=== PATIENT | female | born 1975 | race African-American/Black ===

== ENCOUNTER 2016-11-11 17:06 | Inpatient (IN) | payer MEDICAID ==
[~2016-11-11] VITALS: Ht 152.4 cm; Wt 46.7 kg
[2016-11-11 17:11] VITALS: BP_SYST 103
--- NOTE | 2016-11-11 17:15 | NUR ---
Pt placed to ER bed 05, to larrywjulia, report given to BABS Melo.
--- NOTE | 2016-11-11 17:33 | NUR ---
Note undone in EDM - 11/11/16 at 1814 by [email or web address] Patient is ALOC x 4, no distress noted. Vitals signs are stable. Patient reports that she has been having chest pain today non radiating with difficulty breathing and generalized abdominal pain. Lungs are clear in all wooten. Patient reports also having vomiting, diarrhea, and constipation for 4 days. Pain of 7/8 . eyelet maker applied. No other complaints/injuries per patient or as noted. Will continue to monitor.
--- NOTE | 2016-11-11 17:33 | NUR ---
Dr. Mchugh at bedside
--- NOTE | 2016-11-11 17:33 | NUR ---
Patient is ALOC x 4, no distress noted. Vitals signs are stable. Patient reports that she has been having chest pain today non radiating with difficulty breathing and generalized abdominal pain. Lungs are clear in all wooten. Patient reports also having vomiting, diarrhea, and constipation for 4 days. Pain of 7/10 . electronic device monitor applied. No other complaints/injuries per patient or as noted. Will continue to monitor.
[2016-11-11] MEDS ORDERED: BELLADONNA ALKALOIDS/PHENOBARB 5 ML UDC PO ONE (17:45)
[2016-11-11] MEDS ORDERED: NACL 0.9% 1,000 ML IV ONE (17:45)
[2016-11-11] MEDS ORDERED: LIDOCAINE VISCOUS 2%, 15 ML UDC MM ONE (17:45)
[2016-11-11] MEDS ORDERED: MAG-AL HYDROX/SIMETH 30 ML UDC PO ONE (17:45)
[2016-11-11 18:10] LABS: BASOPHILS % (AUTO) 0.2 % (0.0-2.0); EOSINOPHILS % (AUTO) 0.1 % (0.0-4.0); HEMATOCRIT 34.6 % (36-48); HEMOGLOBIN 11.3 g/dL (12.0-16.0); LYMPHOCYTES # (AUTO) 1.8 K/uL (1.0-5.5); LYMPHOCYTES % (AUTO) 14.6 % (20.5-51.5); MEAN CORPUSCULAR HEMOGLOBIN 29 pg (27-31); MEAN CORPUSCULAR HGB CONC 33 % (32-36); MEAN CORPUSCULAR VOLUME 90 fL (79.0-98.0); MONOCYTES # (AUTO) 0.8 K/uL (0.0-1.0); MONOCYTES % (AUTO) 6.9 % (1.7-9.3); NEUTROPHILS # (AUTO) 9.5 K/uL (1.8-7.7); NEUTROPHILS % (AUTO) 78.2 % (40.0-70.0); PLATELET COUNT (AUTO) 178 K/uL (130-430); RED BLOOD CELL COUNT(AUTO) 3.83 MIL/uL (4.2-6.2); RED CELL DISTRIBUTION WIDTH 13.7 % (9.0-15.0); WHITE BLOOD COUNT (AUTO) 12.1 K/uL (4.8-10.8)
[2016-11-11 18:17] LABS: BILIRUBIN,URINE 1+ (NEGATIVE); BLOOD, URINE 1+ (NEGATIVE); CLARITY/URINE CLEAR (CLEAR); COLOR,URINE YELLOW (YELLOW); GLUCOSE,URINE NEGATIVE (NEGATIVE); KETONES,URINE 3+ (NEGATIVE); LEUKOCYTE ESTERASE ,URINE NEGATIVE (NEGATIVE); NITRITE, URINE NEGATIVE (NEGATIVE); PROTEIN URINE TRACE (NEGATIVE); UROBILINOGEN,URINE 0.2 (0.2-1.0)
[2016-11-11 18:32] LABS: BACTERIA,URINE FEW /HPF (None Seen); MUCUS,URINE 1+ /LPF (None Seen); RBC,URINE 0-3 /HPF (0-3); WBC,URINE 0-3 /HPF (0-3)
[2016-11-11 18:44] LABS: INR 1.2 (0.8-1.2); PROTHROMBIN TIME 12.6 SECS (9.5-12.5)
[2016-11-11 18:53] LABS: CALCIUM 8.8 mg/dL (8.4-11.0); CREATININE 0.76 mg/dL (0.55-1.30); POTASSIUM 3.3 mmol/L (3.5-5.1)
[2016-11-11 18:57] LABS: ALBUMIN 3.4 g/dL (3.4-4.8); TOTAL PROTEIN, SERUM 8.4 g/dL (6.4-8.3)
[2016-11-11] MEDS ORDERED: METO25TA6 (19:24)
[2016-11-11] MEDS ORDERED: ACETAMINOPHEN 325 MG TABLET PO PRN (20:15)
[2016-11-11] MEDS ORDERED: MORPHINE 4 MG/ML INJ. SYRINGE IVP PRN (20:15)
[2016-11-11] MEDS ORDERED: HYDROcodone/ACETAMIN 5-325 MG TAB (NORCO/ VICODIN) PO PRN (20:15)
--- NOTE | 2016-11-11 20:44 | NUR ---
Patient will be admitted to care of Dr. Cabrera. Admitted to Med Surg unit. Will go to room 135. Belongings list completed. Summary report printed. Report will be given at bedside.
--- NOTE | 2016-11-11 20:45 | NUR ---
Admission Note Received patient from ER with diagnosis of Pancreatitis. Initial Plan of Care discussed-patient verbalized understanding. Family at bedside. Oriented to room, call light, pain management and safety.
[2016-11-11] MEDS: METOPROLOL TARTRATE 25 MG TABLET PO SCH (21:00)
[2016-11-11 21:18] VITALS: BP_SYST 121
--- NOTE | 2016-11-11 21:30 | NUR ---
RN Note Admission Assessment done and pt transferred to Room 117A.
--- NOTE | 2016-11-11 21:33 | NUR ---
Consult Called Reason for consultation: Pancreatitis Was consult called:yes Person who was notified: Ryann Consulting Physician: Andrei Sherman MD (Dr. Christensen refrigeration insulator) Order by Rick
--- NOTE | 2016-11-11 22:00 | NUR ---
dr Christensen Spoke with Dr. Christensen and new orders received.
[2016-11-11 22:23] LABS: HCG,QUAL RESULT NEGATIVE (NEGATIVE)
[2016-11-11] MEDS: D5NS 1,000 ML IV SCH (22:52)
[2016-11-11] MEDS: ONDANSETRON HCL 4 MG/2 ML VIAL IVP PRN (23:03)
--- NOTE | 2016-11-11 23:03 | NUR ---
Vomiting Zofran 4mg was given IV for nausea and vomiting with relief.
[2016-11-11] MEDS ORDERED: metroNIDAZOLE 500 mg/NS 200 ML IV ONE (23:08)
[2016-11-11] MEDS ORDERED: LEVOFLOXACIN 500 MG/D5W 100 ML IV ONE (23:08)
[2016-11-11] MEDS: metroNIDAZOLE 500 mg/NS 100 ML IV SCH (23:12)
--- NOTE | 2016-11-12 00:08 | NUR ---
Consults Called Reason for consultation: HTN Person who was notified: Jose Consulting Physician: Tae Cabrera MD Therapy Site Coordinator Phone number: [phone] Ordered by: Ruslan Cabrera MD Reason for consultation: Leukocytosis Person who was notified: Mary Consulting Physician: Sreekanth Howard MD Therapy Site Coordinator Ordered by: Ruslan Cabrera Md
[2016-11-12] MEDS: LEVOFLOXACIN 500 MG/D5W 100 ML IV SCH ×2 (00:21→22:16)
[2016-11-12 00:31] VITALS: BP_SYST 127
--- NOTE | 2016-11-12 01:32 | NUR ---
Anxiety Pt called and stated she is having difficulty breathing. Upon getting into pt's room, pt appears very anxious. HOB elevated 45 degrees. Temp 97.3, HR ranging between 118 and 123, RR 26, BP's 136/101 and 136/93, oxygen saturation 100% on room air. Pt is still c/o difficulty breathing. Pt's spouse at the bedside stated pt is used to drinking alcohol everyday and is having withdrawal. Pt and spouse were informed MD will be paged.
[2016-11-12] MEDS: LORazepam 2 MG/ML VIAL IVP PRN ×2 (01:59→22:13)
--- NOTE | 2016-11-12 01:59 | NUR ---
Anxiety Ativan 1mg given IV for c/o anxiety. Three side rails are up and call light is with patient. Bed alarm is on. Pt was informed she may become drowsy from Ativan and should not get out of bed without calling for assistance. Pt verbalized understanding. Pt's spouse is at the bedside.
--- NOTE | 2016-11-12 02:30 | NUR ---
Rounds Pt is sleeping comfortably in bed. IVF is infusing well. Pt's spouse is at the bedside.
[2016-11-12 04:55] VITALS: BP_SYST 120
[2016-11-12] MEDS: metroNIDAZOLE 500 mg/NS 100 ML IV SCH ×3 (06:07→22:16)
[2016-11-12 06:34] LABS: ALBUMIN 2.8 g/dL (3.4-4.8); BILIRUBIN,DIRECT 1.8 mg/dL (0.0-0.3); CALCIUM 7.5 mg/dL (8.4-11.0); CREATININE 0.7 mg/dL (0.55-1.30); POTASSIUM 3.3 mmol/L (3.5-5.1); TOTAL BILIRUBIN 2.9 mg/dL (0.0-1.0); TOTAL PROTEIN, SERUM 7.3 g/dL (6.4-8.3)
[2016-11-12 06:48] LABS: BASOPHILS % (AUTO) 0.2 % (0.0-2.0); EOSINOPHILS % (AUTO) 0.2 % (0.0-4.0); HEMATOCRIT 31.2 % (36-48); HEMOGLOBIN 10.3 g/dL (12.0-16.0); LYMPHOCYTES # (AUTO) 1.2 K/uL (1.0-5.5); LYMPHOCYTES % (AUTO) 10.7 % (20.5-51.5); MEAN CORPUSCULAR HEMOGLOBIN 30 pg (27-31); MEAN CORPUSCULAR HGB CONC 33 % (32-36); MEAN CORPUSCULAR VOLUME 91 fL (79.0-98.0); MONOCYTES # (AUTO) 0.7 K/uL (0.0-1.0); MONOCYTES % (AUTO) 6.1 % (1.7-9.3); NEUTROPHILS # (AUTO) 9.4 K/uL (1.8-7.7); NEUTROPHILS % (AUTO) 82.8 % (40.0-70.0); PLATELET COUNT (AUTO) 131 K/uL (130-430); RED BLOOD CELL COUNT(AUTO) 3.42 MIL/uL (4.2-6.2); RED CELL DISTRIBUTION WIDTH 13.6 % (9.0-15.0); WHITE BLOOD COUNT (AUTO) 11.3 K/uL (4.8-10.8)
--- NOTE | 2016-11-12 06:54 | NUR ---
Closing Note Pt is resting comfortably in bed. All pt's needs were attended to. No fall or injury noted this shift. Pt's spouse is at the bedside. Will endorse to day shift nurse.
[2016-11-12 08:00] VITALS: BP_SYST 143
--- NOTE | 2016-11-12 08:00 | NUR ---
initial notes rec patient asleep but arousable to stimuli. ivf infusing well on the l ac. no infiltration noted. denies pain when asked. npo maintained for hida scan today. resp easy andunlabored no acute distress noted. fall/safety precaution reinforced. bed in low positon and side rails up and locked. call light within reached and knows when to for assistance. will continue to monitor patient.
[2016-11-12] MEDS: METOPROLOL TARTRATE 25 MG TABLET PO SCH ×2 (09:00→22:14)
--- NOTE | 2016-11-12 10:30 | NUR ---
rounds was taken for hida scan via wheelchair. npo maintained. no acute distress noted.
[2016-11-12] MEDS: D5NS 1,000 ML IV SCH ×2 (12:17→16:09)
--- NOTE | 2016-11-12 12:23 | NUR ---
rounds was taken back again for hida scan via wheelchair. no sob noted
--- NOTE | 2016-11-12 14:00 | NUR ---
rounds denies pain, no c/o pain. sleeps at intervals.
--- NOTE | 2016-11-12 16:00 | NUR ---
rounds awaiting for dr baeza to call re diet. sleeps at intervals. no sob noted.
[2016-11-12 16:12] VITALS: BP_SYST 133
[2016-11-12] MEDS ORDERED: MULTIVITAMINS TAB 1 TABLET PO ONE (18:00)
[2016-11-12] MEDS ORDERED: FOLIC ACID 1 MG TABLET PO ONE (18:00)
[2016-11-12] MEDS ORDERED: THIAMINE HCL 100 MG in NS 50 ML IV ONE (18:00)
[2016-11-12] MEDS: THIAMINE HCL 100 MG in NS 50 ML IV SCH (18:27)
--- NOTE | 2016-11-12 18:45 | NUR ---
closing notes clive clear liquid but instructed to take it slow and no vomiting or pain so far. dr noble here to see patient and updated re patient.
[2016-11-12] MEDS ORDERED: D5NS 1,000 ML IV SCH (20:30)
[2016-11-12 21:00] VITALS: BP_SYST 135
--- NOTE | 2016-11-12 21:05 | NUR ---
DR GARFIELD CHIN here to see patient new orders obtained , IVF started as ordered .
[2016-11-12] MEDS: KCL 40mEq in D5/0.45NS 1000 mL 1,000 ML IV SCH (22:12)
[2016-11-12] MEDS: ONDANSETRON HCL 4 MG/2 ML VIAL IVP PRN (22:13)
--- NOTE | 2016-11-13 00:09 | NUR ---
LORAZEPAM 1 MG IVP administer per patient request for anxiety .
--- NOTE | 2016-11-13 00:11 | NUR ---
Hourly Rounding patient resting call ontiveros with patient , skin dry warm assist with needs as needed .
[2016-11-13 00:15] VITALS: BP_SYST 127
[2016-11-13 04:20] VITALS: BP_SYST 109
--- NOTE | 2016-11-13 04:23 | NUR ---
Patient awake on and off HOB elevated family member @ the bedside , assist as needed call ontiveros with patient chest movement symmetrical unlabored .
[2016-11-13] MEDS: metroNIDAZOLE 500 mg/NS 100 ML IV SCH ×3 (06:17→21:18)
[2016-11-13 06:29] LABS: BASOPHILS % (AUTO) 0.3 % (0.0-2.0); EOSINOPHILS % (AUTO) 0.2 % (0.0-4.0); HEMATOCRIT 30.8 % (36-48); HEMOGLOBIN 10.3 g/dL (12.0-16.0); LYMPHOCYTES # (AUTO) 1.4 K/uL (1.0-5.5); LYMPHOCYTES % (AUTO) 14.2 % (20.5-51.5); MEAN CORPUSCULAR HEMOGLOBIN 30 pg (27-31); MEAN CORPUSCULAR HGB CONC 33 % (32-36); MEAN CORPUSCULAR VOLUME 90 fL (79.0-98.0); MONOCYTES # (AUTO) 0.8 K/uL (0.0-1.0); MONOCYTES % (AUTO) 7.8 % (1.7-9.3); NEUTROPHILS # (AUTO) 7.7 K/uL (1.8-7.7); NEUTROPHILS % (AUTO) 77.5 % (40.0-70.0); PLATELET COUNT (AUTO) 134 K/uL (130-430); RED BLOOD CELL COUNT(AUTO) 3.41 MIL/uL (4.2-6.2); RED CELL DISTRIBUTION WIDTH 13.5 % (9.0-15.0); WHITE BLOOD COUNT (AUTO) 9.9 K/uL (4.8-10.8)
[2016-11-13 06:36] LABS: ALBUMIN 2.8 g/dL (3.4-4.8); CREATININE 0.9 mg/dL (0.55-1.30); POTASSIUM 3.1 mmol/L (3.5-5.1); TOTAL BILIRUBIN 4.2 mg/dL (0.0-1.0); TOTAL PROTEIN, SERUM 7.2 g/dL (6.4-8.3)
[2016-11-13 08:00] VITALS: BP_SYST 126
--- NOTE | 2016-11-13 08:00 | NUR ---
initial notes rec patient asleep but arousable to stimuli. ivf infusing well on the l ac. no infiltration noted.denies abdominal pain at this time.. resp easy and unlabored and no acute distress noted. bed in low position and side rails up and locked. call light within reached and instructed to call nurse for assists to the br.
[2016-11-13] MEDS: MULTIVITAMINS TAB 1 TABLET PO SCH (08:51)
[2016-11-13] MEDS: FOLIC ACID 1 MG TABLET PO SCH (08:51)
[2016-11-13] MEDS: METOPROLOL TARTRATE 25 MG TABLET PO SCH ×2 (08:52→21:19)
--- NOTE | 2016-11-13 10:00 | NUR ---
rounds due meds given as ordered and clive well. ambulates with min assists to the bathroom. no acute distress noted.
[2016-11-13] MEDS: LORazepam 2 MG/ML VIAL IVP PRN ×2 (10:47→23:43)
[2016-11-13 12:58] VITALS: BP_SYST 125
--- NOTE | 2016-11-13 13:12 | NUR ---
rounds seen by dr maher. stated will remain on clear liquids for now. no nausea vomiting noted. call light within reached. assisted to the br with min assists to void and clive well.
--- NOTE | 2016-11-13 14:00 | NUR ---
rounds with c/o pain anxiety and was medicated. no sob noted. bed in low position and side rails up and locked.
[2016-11-13] MEDS: KCL 40mEq in D5/0.45NS 1000 mL 1,000 ML IV SCH ×3 (14:09→23:43)
--- NOTE | 2016-11-13 16:00 | NUR ---
rounds no c/opain. no acyte distress. bed in low position and side rails up and locked.
[2016-11-13 16:26] VITALS: BP_SYST 130
--- NOTE | 2016-11-13 18:30 | NUR ---
closing notes no c/o pain. resting comfortably. seen by dr marie , no sob noted. needs attended. stable, needs attended.
[2016-11-13] MEDS: THIAMINE HCL 100 MG in NS 50 ML IV SCH (18:57)
[2016-11-13 20:32] VITALS: BP_SYST 132
[2016-11-13] MEDS: ONDANSETRON HCL 4 MG/2 ML VIAL IVP PRN (21:18)
--- NOTE | 2016-11-13 22:15 | NUR ---
ZOFRAN 4 MG IVP administer for GI upset & helpful .
[2016-11-13] MEDS: LEVOFLOXACIN 500 MG/D5W 100 ML IV SCH (22:25)
--- NOTE | 2016-11-13 23:15 | NUR ---
LEVAQUIN 500 MG IVPB administer as ordered no allergic reaction skin rash free .
[2016-11-14] VITALS (7 sets, daily range): BP systolic 112–133
--- NOTE | 2016-11-14 | NUR ---
Patient awake assist out of bed to rest room , ambulatory , skin dry warm verbally indicative fall measures implemented .
--- NOTE | 2016-11-14 03:19 | NUR ---
LORAZEPAM 1 MG IVP administer per patient request , for anxiety & helpful .
--- NOTE | 2016-11-14 03:21 | NUR ---
FLAGYL 500 MG IVPB administer as ordered IV site left AC , wnl IVF tolerating assist as needed .
--- NOTE | 2016-11-14 03:22 | NUR ---
MORPHINE SULFATE 4 MG IVP administer for general pain & helpful , patient resting bed to low position .
--- NOTE | 2016-11-14 05:14 | NUR ---
Patient resting sleeping verbally responsive , family at the bedside , respirations regular unlabored no complaints made assist as needed .
[2016-11-14 06:17] LABS: BASOPHILS % (AUTO) 0.4 % (0.0-2.0); EOSINOPHILS % (AUTO) 0.1 % (0.0-4.0); HEMATOCRIT 29.9 % (36-48); HEMOGLOBIN 9.9 g/dL (12.0-16.0); LYMPHOCYTES # (AUTO) 1.4 K/uL (1.0-5.5); LYMPHOCYTES % (AUTO) 12.5 % (20.5-51.5); MEAN CORPUSCULAR HEMOGLOBIN 30 pg (27-31); MEAN CORPUSCULAR HGB CONC 33 % (32-36); MEAN CORPUSCULAR VOLUME 91 fL (79.0-98.0); MONOCYTES # (AUTO) 0.5 K/uL (0.0-1.0); MONOCYTES % (AUTO) 4.7 % (1.7-9.3); NEUTROPHILS # (AUTO) 9.5 K/uL (1.8-7.7); PLATELET COUNT (AUTO) 140 K/uL (130-430); RED CELL DISTRIBUTION WIDTH 13.6 % (9.0-15.0); WHITE BLOOD COUNT (AUTO) 11.4 K/uL (4.8-10.8)
[2016-11-14] MEDS: metroNIDAZOLE 500 mg/NS 100 ML IV SCH ×3 (06:28→21:19)
[2016-11-14 06:33] LABS: ALANINE AMINOTRANSFERASE 37 U/L (12-78); ALBUMIN 2.6 g/dL (3.4-4.8); ANION GAP 9 (5-15); ASPARTATE AMINOTRANSFERASE 112 U/L (10-37); CALCIUM 7.8 mg/dL (8.4-11.0); CHLORIDE 104 mmol/L (98-107); CREATININE 0.87 mg/dL (0.55-1.30); GLUCOSE 113 mg/dL (70-99); LIPASE 347 U/L (73-393); POTASSIUM 3.9 mmol/L (3.5-5.1); SODIUM SERUM 136 mmol/L (136-145); TOTAL BILIRUBIN 2.8 mg/dL (0.0-1.0); TOTAL PROTEIN, SERUM 6.7 g/dL (6.4-8.3); UREA NITROGEN, BLOOD 1 mg/dL (8-21)
[2016-11-14 06:37] LABS: GFR AFRICAN AMERICAN 92 mL/min (>90)
--- NOTE | 2016-11-14 06:43 | NUR ---
Phoned paged DR MERRILL D/T MAGNESIUM 0.1 , return call pending .
--- NOTE | 2016-11-14 06:50 | NUR ---
PAGED PAGED ENID VAZ AT [phone] SPOKE WITH NIA, CLAUDE ALEXANDRA E LEARNING DESIGNER AT [phone] SPOKE WITH NIA.
--- NOTE | 2016-11-14 07:30 | NUR ---
OPENING NOTE RECEIVED REPORT FROM INSTALLER INSPECTOR FINAL NURSE. PATIENT RESTING COMFORTABLY WITH FRIEND AT BEDSIDE. PATIENT HAS NO COMPLAINTS OF PAIN AT THIS TIME. NO NOTABLE SIGNS OF DISTRESS AT THIS TIME. IV RUNNING PER MD ORDERS. PATIENT HAS BRP, AMBULATED STEADILY. PATIENT ENCOURAGED TO CALL WHEN NEEDS ARISE. PATIENTS BED IN LOWEST POSITION, CALL LIGHT WITHIN REACH, AND SIDE RAILS ARE UP FOR SAFETY. WILL CONTINUE TO MONITOR PATIENT FOR CHANGES IN STATUS.
[2016-11-14] MEDS ORDERED: MAGNESIUM SULFATE 50 ML IV ONE (08:00)
--- NOTE | 2016-11-14 08:01 | NUR ---
MD CALL SPOKE WITH DR. DUMONT REGARDING LOW MAGNESIUM LEVELS. REVIEWED ALL LAB VALUES WITH MD. ORDERS GIVEN FOR 2GM MAG RIDER IV INFUSE OVER 4 HOURS. ORDERS PUT IN SYSTEM BY NURSE.
[2016-11-14] MEDS: MULTIVITAMINS TAB 1 TABLET PO SCH (09:32)
[2016-11-14] MEDS: FOLIC ACID 1 MG TABLET PO SCH (09:32)
[2016-11-14] MEDS: METOPROLOL TARTRATE 25 MG TABLET PO SCH ×2 (09:34→21:20)
[2016-11-14] MEDS: KCL 40mEq in D5/0.45NS 1000 mL 1,000 ML IV SCH ×2 (09:35→21:19)
--- NOTE | 2016-11-14 09:40 | NUR ---
NOTE PATIENT MORNING MEDICATIONS GIVEN. PO PILLS, AND IVF CHANGED BY RN. MAG RIDER WAS ALSO TO BE GIVEN OVER [address] DUMONT ORDERS[address] STUDENT AND INSTRUCTOR WERE TO GIVE MAG RIDER, AND IV PUMP SETTINGS TO BE CHECKED BY RN TAKING CARE OF PATIENT. AFTER STARTING INFUSION, PATIENT COMPLAINED OF FEELING WARM, PATIENT WAS DIAPHORETIC, AND COMPLAINT OF DIFFICULTY BREATHING. MUSHROOM SPAWN MAKER NOTIFIED, PLACED PATIENT ON POWER TOOL REPAIR TECHNICIAN, AND MD NOTIFIED FOR ORDERS. WILL CONTINUE TO MONITOR PATIENT FOR CHANGES IN STATUS. VITAL SIGNS CHECKED: HR 100; TEMP 96.7; 114/88; 95% ON ROOM AIR; AND RR OF 20. PATIENTS BED IN LOWEST POSITION, CALL LIGHT WITHIN REACH, AND SIDE RAILS ARE UP FOR SAFETY. PATIENTS IS AT BEDSIDE FOR COMFORT.
[2016-11-14 09:48] LABS: NEUTROPHILS % (AUTO) 82.3 % (40.0-70.0)
--- NOTE | 2016-11-14 11:31 | NUR ---
NOTE SPOKE WITH DR. DUMONT REGARDING PATIENT STATUS. PATIENT WAS PLACED ON TELEMETRY MONITORING, MD WOULD LIKE PATIENT TO REMAIN ON MANAGER RESIDENTIAL UNTIL OKAY PER DR. DUMONT. WOULD LIKE TO HAVE ONLY RN TAKING CARE OF PATIENT TO PERFORM CARE MEASURES.
--- NOTE | 2016-11-14 12:14 | NUR ---
NOTE REPORT GIVEN TO BABS FRAZIER. PATIENT CHANGED TO TELEMETRY STATUS. PATIENT IS IN STABLE CONDITION, CALL LIGHT WITHIN REACH, FAMILY IS AT BEDSIDE. PATIENT HAS NO COMPLAINTS OF PAIN AT THIS TIME. PATIENT HAS NO NOTABLE SIGNS OF DISTRESS AT THIS TIME. ALL NEEDS MET.
--- NOTE | 2016-11-14 15:00 | NUR ---
PATIENT RESTING: Patient resting quietly. No acute distress noted. Vital signs within normal range. telemetry NSR .
--- NOTE | 2016-11-14 17:00 | NUR ---
CARDIO Patient ambulate to bathroom with steady gait , Sinus tachycardic at 130 , denies any chest pain no palpitation ,back patient to bed will continue to monitor.
[2016-11-14] MEDS: HYDROcodone/ACETAMIN 10-325 MG TAB PO PRN (17:35)
[2016-11-14] MEDS: THIAMINE HCL 100 MG in NS 50 ML IV SCH (17:36)
--- NOTE | 2016-11-14 18:39 | NUR ---
CLOSING NOTES Denies any abdominal pain,no chest discomfort, telemetry NSR at 110/min, tolerates clear liquid diet w/o nausea and vomiting.
--- NOTE | 2016-11-14 19:20 | NUR ---
INITIAL NOTES; -Pt is a/ox4, resting in bed. Pt denies any chest pain,pain,sob,or any acute distress. IV site of left a/c wall patent, drsg cdi. IVF D5 1/2NS + 40 MEQ KCL @ 100ml/hr. Discussed poc,all safety measures, also instructed not to get out by self, to use call light for assistance, pt verbalized understanding. All safety measures in place. Call light w/in reach. Continue to monitor pt.
[2016-11-14] MEDS: MORPHINE 2 MG/ML INJ. SYRINGE IVP PRN (21:21)
--- NOTE | 2016-11-14 21:21 | NUR ---
PAIN MEDICATION ADMINISTERED -Pt is c/o rt back pain, gave Morphine Sulfate 2mg IVP. See EMAR for pain reassessment. Family is at bedside. All safety measures in place. Call light w/in reach. Continue to monitor p
[2016-11-14] MEDS: LEVOFLOXACIN 500 MG/D5W 100 ML IV SCH (23:36)
--- NOTE | 2016-11-14 23:36 | NUR ---
ROUNDS; -Pt is resting in bed, watching IV. Vital signs stable. Pt denies any chest pain,pain,sob,or any acute distress. IV site patent, no s/s any infiltration noted. IVF D5 1/2NS + 40 MEQ KCL @ 100ml/hr. Family is at bedside. All safety measures in place. Call light w/in reach. Continue to monitor p
[2016-11-15] MEDS: LORazepam 2 MG/ML VIAL IVP PRN ×2 (01:17→22:08)
--- NOTE | 2016-11-15 01:17 | NUR ---
ANXIOUS-ATIVAN 1MG IVP GIVEN -Pt is anxious, gave Ativan 1mg IVP given. Pt denies pain,chest pain, or N&V this time. IV site patent, no s/s any infiltration noted. IVF D5 1/2NS + 40 MEQ KCL @ 100ml/hr. Family is at bedside. All safety measures in place. Call light w/in reach. Continue to monitor pt
--- NOTE | 2016-11-15 02:13 | NUR ---
ROUNDS; -Pt is resting in bed, watching IV. Pt denies any chest pain,pain,sob,or any acute distress. IV site patent, no s/s any infiltration noted. IVF D5 1/2NS + 40 MEQ KCL @ 100ml/hr. Family is at bedside. All safety measures in place. Call light w/in reach. Continue to monitor pt
[2016-11-15 04:40] VITALS: BP_SYST 122
--- NOTE | 2016-11-15 04:40 | NUR ---
ROUNDS; -Pt just returned from bathroom, only voided, no bowel movt. Vital signs stable except elevated HR when pt is up and ambulating. VS 96.0, 20, 122/92,114,c0jeb=26% r/a. Pt denies any chest pain,pain,sob,or any acute distress. IV site patent, no s/s any infiltration noted. IVF D5 1/2NS + 40 MEQ KCL @ 100ml/hr. Family is at bedside. All safety measures in place. Call light w/in reach. Continue to monitor pt
[2016-11-15] MEDS: metroNIDAZOLE 500 mg/NS 100 ML IV SCH ×3 (05:22→22:01)
--- NOTE | 2016-11-15 05:22 | NUR ---
ROUNDS; -Pt is resting. No s/s any chest pain,pain,sob,N&V,or any acute distress noted. IV site patent, no s/s any infiltration noted. IVF D5 1/2NS + 40 MEQ KCL @ 100ml/hr. Family is at bedside. All safety measures in place. Call light w/in reach. Continue to monitor pt
--- NOTE | 2016-11-15 06:38 | NUR ---
CLOSING NOTES; -Pt is resting in bed. No s/s any chest pain,pain,sob,or any acute distress noted. IV site of left a/c wall patent, drsg cdi. IVF D5 1/2NS + 40 MEQ KCL @ 100ml/hr. All safety measures in place. Call light w/in reach. Will endorse to oncoming nurse to continue care.
[2016-11-15 06:55] LABS: ALBUMIN 2.6 g/dL (3.4-4.8); CALCIUM 8.3 mg/dL (8.4-11.0); CREATININE 0.71 mg/dL (0.55-1.30); POTASSIUM 4.1 mmol/L (3.5-5.1); TOTAL BILIRUBIN 2.5 mg/dL (0.0-1.0); TOTAL PROTEIN, SERUM 6.7 g/dL (6.4-8.3)
--- NOTE | 2016-11-15 07:44 | NUR ---
OPENING NOTE: PT AMBULATED TO BATHROOM WITH ASSIST, PT GAIT STABLE. SAFELY BACK IN BED. AAOX4. NO ACUTE SIGNS OF RESP DISTRESS, NO SOB. SKIN WARM DRY AND COLOR NORMAL FOR ETHNICITY. IV INTACT AND PATENT, NO REDNESS/SWELLING. IVF INFUSING WELL. RE-ENFORCED PT ON A CLEAR LIQUID DIET AND PT VERBALIZED UNDERSTANDING. DENIES PAIN AT THIS TIME. DENIES DIZZINESS, LIGHTHEADED, AND SOB. BED AT LOWEST POSITION, CALL LIGHT IN REACH. CONTINUE TO MONITOR.
[2016-11-15] MEDS: FOLIC ACID 1 MG TABLET PO SCH (08:16)
[2016-11-15] MEDS: MULTIVITAMINS TAB 1 TABLET PO SCH (08:17)
[2016-11-15] MEDS: METOPROLOL TARTRATE 25 MG TABLET PO SCH ×2 (08:17→21:29)
--- NOTE | 2016-11-15 08:19 | NUR ---
ROUNDING: AM MEDS GIVEN PER MD ORDERS. PT TOLERATED WELL. PT DENIES HEADACHE AND N/V. TENDON REFLEX PRESENT AND STRONG. NO SIGNS OF FLUSHING AND PT DENIES FEELING HOT. PT AWAKE, ALERT AND ORIENTED. PT WATCHING TV, WITH CLEAR LIQUID BREAKFAST ON BEDSIDE TABLE. ALL NEEDS MET AT THIS TIME. SAFETY PRECAUTIONS IN PLACE. CONTINUE TO MONITOR.
[2016-11-15] MEDS: HYDROcodone/ACETAMIN 10-325 MG TAB PO PRN (08:56)
[2016-11-15] MEDS: KCL 40mEq in D5/0.45NS 1000 mL 1,000 ML IV SCH ×2 (08:56→18:23)
[2016-11-15 09:32] VITALS: BP_SYST 134
--- NOTE | 2016-11-15 10:42 | NUR ---
ROUNDING: PT RESTING WITH EYES CLOSED. AROUSABLE TO LIGHT STIMULI AND NAME CALL. NO NOTABLE SIGNS OF ACUTE RESP DISTRESS, NO SOB. SKIN COLOR NORMAL FOR ETHNICITY. PT DENIES HEADACHE, N/V, FLUSHING. ABDOMEN IS SOFT AND NONDISTENDED. IV INTACT AND NO REDNESS/SWELLING. IVF INFUSING WELL. BED AT LOWEST POSITION, CALL LIGHT IN REACH. ALL NEEDS MET. CONTINUE TO MONITOR.
--- NOTE | 2016-11-15 12:00 | NUR ---
ROUNDING: PT LAYING IN BED COMFORTABLY. FAMILY AT BEDSIDE. NO NOTABLE SIGNS OF ACUTE RESP DISTRESS, NO SOB. PT DENIES HEADACHE, LETHARGY, N/V AND FLUSHING. IV INTACT AND IVF INFUSING WELL. BED AT LOWEST POSITION, CALL LIGHT IN REACH. CONTINUE TO MONITOR.
[2016-11-15 12:13] VITALS: BP_SYST 122
--- NOTE | 2016-11-15 15:00 | NUR ---
ROUNDING: PT LAYING IN BED COMFORTABLY WITH HOB ELEVATED. PT AAOX4. NO NOTABLE SIGNS FO ACUTE RESP DISTRESS, NO SOB. PT DENIES N/V, FEELING WARM, AND HEADACHES. ABDOMEN, SOFT AND NON-DISTENDED. IV INTACT AND IVF INFUSING WELL. UPDATED PT WITH PLAN OF CARE AND PT VERBALIZED UNDERSTANDING. BED AT LOWEST POSITION, CALL LIGHT IN REACH, SIDE RAILSX 3. CONTINUE TO MONITOR.
[2016-11-15] MEDS: MORPHINE 2 MG/ML INJ. SYRINGE IVP PRN (15:30)
[2016-11-15 16:08] VITALS: BP_SYST 114
--- NOTE | 2016-11-15 17:30 | NUR ---
Page Dr. Wilburn: Page Dr. Wilburn for downgrade orders. Awaiting page back at this time. Addendum: 11/15/16 at 1732 by Samantha Espinoza RN Error: Dr. Wilburn no longer covering for Dr. Cabrera. Dr. Cabrera paged.
--- NOTE | 2016-11-15 17:30 | NUR ---
PAGED PAGED ENID VAZ AT [phone] SPOKE WITH HUANG.
[2016-11-15] MEDS ORDERED: MAGNESIUM SULFATE 50 ML IV ONE (18:00)
[2016-11-15] MEDS: THIAMINE HCL 100 MG in NS 50 ML IV SCH (18:23)
--- NOTE | 2016-11-15 18:50 | NUR ---
CLOSING NOTE: PT LAYING IN BED WITH HOB ELEVATED EATING DINNER. FAMILY MEMBERS AT BEDSIDE. NEW IVF HANGED. MEDS GIVEN PER MD ORDERS, PT TOLERATED WELL. TELE BOX D/C, TELE BOX GIVEN TO EMPLOYEE RELATIONS MANAGER. PT AAOX4. NO NOTABLE SIGNS OF ACUTE RESP DISTRESS, NO SOB. PT DENIES HEADACHE, N/V, FLUSHING, AND CHEST PAIN. SKIN WARM DRY AND COLOR NORMAL FOR ETHNICITY. IV INTACT AND PATENT, NO SIGNS OF REDNESS/SWELLING/ACTIVE BLEEDING. WILL ENDORSE PLAN OF CARE TO BABS RG.
[2016-11-15] MEDS ORDERED: MULT PO (19:04)
[2016-11-15] MEDS ORDERED: THIA100T13 PO (19:04)
[2016-11-15] MEDS ORDERED: FOLI-43 PO (19:04)
[2016-11-15 20:00] VITALS: BP_SYST 118
--- NOTE | 2016-11-15 20:00 | NUR ---
Rounds Received patient lying in bed resting, denies of any pain, no nausea or vomiting noted. IV site checked intact and patent, IV fluid infusing well. Encouraged patient to use call light to call nurse for assistance, call light within reach.
[2016-11-15] MEDS ORDERED: DIPHENHYDRAMINE HCL 50 MG CAPSULE PO PRN (21:30)
[2016-11-15] MEDS: LEVOFLOXACIN 500 MG/D5W 100 ML IV SCH (22:48)
--- NOTE | 2016-11-15 23:08 | NUR ---
C/O itching Patient c/o itching, per patient itching stated in the afternoon. Informed Dr Cabrera new order received to give Benadryl 50mg po every 6hours prn for itching. Benadryl given at 22:08. Re-checked patient after one hour with effective result noted. patient resting quietly at this time. will continue to monitor.
[2016-11-16 00:38] VITALS: BP_SYST 108
--- NOTE | 2016-11-16 02:00 | NUR ---
Rounds Patient resting quietly, call light within reach.
[2016-11-16] MEDS: KCL 40mEq in D5/0.45NS 1000 mL 1,000 ML IV SCH (03:36)
[2016-11-16 03:52] VITALS: BP_SYST 105
--- NOTE | 2016-11-16 05:08 | NUR ---
Rounds Patient resting quietly, call light within reach.
[2016-11-16] MEDS: metroNIDAZOLE 500 mg/NS 100 ML IV SCH ×2 (05:20→14:19)
--- NOTE | 2016-11-16 06:43 | NUR ---
Closing notes Patient slept most of the night, no other changes noted on patient current condition.
[2016-11-16 06:49] LABS: BASOPHILS % (AUTO) 0.3 % (0.0-2.0); EOSINOPHILS % (AUTO) 0.1 % (0.0-4.0); HEMATOCRIT 29.3 % (36-48); HEMOGLOBIN 9.7 g/dL (12.0-16.0); LYMPHOCYTES # (AUTO) 0.8 K/uL (1.0-5.5); LYMPHOCYTES % (AUTO) 8.2 % (20.5-51.5); MEAN CORPUSCULAR HEMOGLOBIN 30 pg (27-31); MEAN CORPUSCULAR HGB CONC 33 % (32-36); MEAN CORPUSCULAR VOLUME 91 fL (79.0-98.0); MONOCYTES % (AUTO) 10.4 % (1.7-9.3); NEUTROPHILS # (AUTO) 8.2 K/uL (1.8-7.7); PLATELET COUNT (AUTO) 170 K/uL (130-430); RED BLOOD CELL COUNT(AUTO) 3.21 MIL/uL (4.2-6.2); RED CELL DISTRIBUTION WIDTH 13.9 % (9.0-15.0)
[2016-11-16 06:52] LABS: ALBUMIN 2.6 g/dL (3.4-4.8); POTASSIUM 4.5 mmol/L (3.5-5.1); TOTAL BILIRUBIN 2.1 mg/dL (0.0-1.0)
[2016-11-16 07:15] LABS: C-REACTIVE PROTEIN QUANT 3.6 mg/dL (0-0.5); CALCIUM 8.3 mg/dL (8.4-11.0); CREATININE 0.75 mg/dL (0.55-1.30); PHOSPHORUS 1.4 mg/dL (2.7-4.5); TOTAL PROTEIN, SERUM 6.8 g/dL (6.4-8.3)
[2016-11-16 07:55] LABS: ERYTHROCYTE SEDIMENTATION RATE 34 MM/HR (0-20)
[2016-11-16 08:00] VITALS: BP_SYST 110
--- NOTE | 2016-11-16 08:00 | NUR ---
RN OPENING NOTE PATIENT LYING ON BED ALERT ORIENTED X 4 PATIENT WAS ASSESSED, VITAL SIGNS ARE STABLE WILL FOLLOW UP WITH HER MED
--- NOTE | 2016-11-16 09:22 | NUR ---
Social Service Note: Pt referred to social science manager by physician due to pt's alcohol use. KILN OPERATOR HELPER met with pt at bedside; pt appears alert and oriented; pt cooperative with assessment. Pt states that she drinks about 2 cups of moy a day. Pt states that she believes that her drinking it what caused her symptoms and brought her to the hospital. Pt states that she is wanting to abstain from drinking. Pt states that she has gone to AA meetings in the past for a short time in her community. KILN OPERATOR HELPER encouraged pt to return to the AA meetings. KILN OPERATOR HELPER also discussed outpatient substance abuse treatment programs. KILN OPERATOR HELPER provided pt with listing of AA meetings and substance abuse treatment programs. KILN OPERATOR HELPER will remain available for support and will follow up as needed.
[2016-11-16] MEDS: MULTIVITAMINS TAB 1 TABLET PO SCH (09:42)
[2016-11-16] MEDS: FOLIC ACID 1 MG TABLET PO SCH (09:42)
[2016-11-16] MEDS: METOPROLOL TARTRATE 25 MG TABLET PO SCH (09:43)
--- NOTE | 2016-11-16 10:00 | NUR ---
RN ROUNDS PATIENT PARTENER CAME BY THE BED SIDE, PATIENT IS GETTING HER MEDICATION WELL HER IV ANTIBIOTICS WILL FOLLOW UP
--- NOTE | 2016-11-16 12:00 | NUR ---
RN ROUNDS PATIENT WILL BE D/C HOME, JUST WE TRY TO REACH HER DOCTOR TO CONFIRM THE ORDER
[2016-11-16 12:26] VITALS: BP_SYST 122
--- NOTE | 2016-11-16 14:00 | NUR ---
RN ROUNDS PATIENT IS GETTING HER FLAGYL IVPB, TOLD SHE WILL D/C AFTER FINISHING IT, MEANWHILE PREPARING HER PAPERS FOR D/C HOME, PATIENT WAS EDUCATED ABOUT HER PANCREATITIS ADVISED TO FOLLOW UP WITH THE OUTSIDE GROUPS FOR ALCOHOL [facility] ANF REHAB.
--- NOTE | 2016-11-16 15:00 | NUR ---
RN CLOSING NOTE PATIENT WAS GIVEN HER D/C INSUTRUCTION, VERBALIZED UNDERSTANDING AND WAS SENT TO HER CAR BY WHEEL CHAIR
[2016-11-16 16:12] VITALS: BP_SYST 116
[2016-11-16 16:23] VITALS: BP_SYST 116
== END 2016-11-16 17:05 | disposition home or self-care (01) | DRG 282 ==
LOC: SED 17:06 → SMU 20:09 → STU 11-14 11:26 → SMU 11-15 22:25
PROVIDERS: ADMIT Preventive Medicine Preventive Medicine/Occupational Environmental Medicine; ATTEND Preventive Medicine Preventive Medicine/Occupational Environmental Medicine
DX: K85.90 Acute pancreatitis without necrosis or infection, unspecified (principal); R65.11 Systemic inflammatory response syndrome (SIRS) of non-infectious origin with acute organ dysfunction; E43 Unspecified severe protein-calorie malnutrition; K70.9 Alcoholic liver disease, unspecified; I10 Essential (primary) hypertension; D64.9 Anemia, unspecified; E78.5 Hyperlipidemia, unspecified; F10.10 Alcohol abuse, uncomplicated; K21.9 Gastro-esophageal reflux disease without esophagitis; R19.7 Diarrhea, unspecified; R74.0 Nonspecific elevation of levels of transaminase and lactic acid dehydrogenase [LDH]; Z79.899 Other long term (current) drug therapy
CPT/HCPCS: 36415; 71010; 76700-TC; 78226; 80053; 80061; 81000-TC; 82150-TC; 82248-TC; 82550-TC; 83605; 83690-TC; 83735-TC; 83880; 84100-TC; 84484; 84703; 85025; 85610-TC; 85651-TC; 85730-TC; 86140; 87040-TC; 93005; 96361; 96365; 99285; A9537; J1956; J2001; J2060; J2270; J2405; J3411; J3475; J3490; J7030; J7042; Q0163

== ENCOUNTER 2017-07-04 15:45 | Emergency (ER) | payer BC, MEDICAID ==
[~2017-07-04] VITALS: Ht 152.4 cm; Wt 49.9 kg
[~2017-07-04 15:45] MED LIST: FOLI-43 PO; MULT PO; THIA100T13 PO
[2017-07-04 16:17] VITALS: BP_SYST 143
--- NOTE | 2017-07-04 18:00 | NUR ---
Pt brought to [facility] chair, report received from BABS Amos. Pt states that she was in a skate boarding accident about 2 hours ago and fell down a ramp. Pt presents with ~2cm lac to bottom of left brow, abrasions to left cheek, swelling to left upper lip. Bleeding controlled to lac with pressure dsg. Pt denies LOC, no nausea, no visual deficits, no focal neurodeficits, no obvious ankur deformities.
[2017-07-04] MEDS ORDERED: HYDROcodone/ACETAMIN 5-325 MG TAB (NORCO/ VICODIN) PO ONE (18:30)
--- NOTE | 2017-07-04 18:30 | NUR ---
Dr. Potts assessing pt.
--- NOTE | 2017-07-04 18:45 | NUR ---
Pt unable to urinate. Dr. Potts notified. Pt to be shielded during CT.
--- NOTE | 2017-07-04 18:51 | NUR ---
Pt to CT, ambulates with steady gait.
--- NOTE | 2017-07-04 19:00 | NUR ---
Pt returns from CT. No needs verbalized at this time.
--- NOTE | 2017-07-04 19:05 | NUR ---
Pt moved to ER bed 01.
--- NOTE | 2017-07-04 19:15 | NUR ---
Pt report given to BABS Baez.
[2017-07-04 20:13] VITALS: BP_SYST 143
--- NOTE | 2017-07-04 20:13 | NUR ---
Patient given written and verbal discharge instructions and verbalizes understanding. ER MD ALCANTARA discussed with patient the results and treatment provided. Patient in stable condition. ID arm band removed. NO Rx given. Patient educated on pain management and to follow up with PMD. Pain Scale 0/10. Opportunity for questions provided and answered.
== END 2017-07-04 20:13 | disposition home or self-care (01) ==
LOC: SED 15:45
DX: S01.81XA Laceration without foreign body of other part of head, initial encounter (principal); V00.131A Fall from skateboard, initial encounter; Y93.51 Activity, roller skating (inline) and skateboarding; Y92.89 Other specified places as the place of occurrence of the external cause; Y99.8 Other external cause status
CPT/HCPCS: 70450-TC; 70486-TC; 99284